=== PATIENT | female | born 1940 | race Caucasian/White ===

== ENCOUNTER 2016-07-23 17:44 | Emergency (ER) | payer MEDICARE, BC ==
[~2016-07-23 17:44] MED LIST: AMIT10 PO; AMIT25 PO; ASAB PO; ATEN25 PO; BEN25 PO; C25 PO; CALTRA600D PO; CALTRAT600 PO; CITRACAL PO; CO Q-10100 MG PO; COREG25 PO; FESO4 PO; FISH-EPA1000 MG PO; FLEX PO; GAS-X80 MG PO; HALF81 PO; HEMOCYTE324 MG PO; ICY HOT51 TOP; KAON-CL-1010 MEQ PO; KDUR10 PO; L20 PO; LEVAQUIN750 MG PO; LEVOTHYROXIN100 MCG PO; LEVOTHYROXIN150 MCG PO; LIPITOR20 PO; LOP25 PO; LORTAB10 PO; MEVACOR PO; MEVACOR40 MG PO; MSCONT15 PO; NORCO1 TAB PO; NORV25 PO; P5 PO; PCET PO; PLAQ200B PO; PREV15 PO; PRIN20 PO; SUPER B COMP PO; SYN1 PO; VITAMIN B PO; ZESTRIL20 MG PO
[2016-07-23 18:21] LABS: BASOPHILS 0.2 %; BASOPHILS ABSOLUTE 0.02 10/3/uL (0.0-0.16); EOSINOPHILS 1.1 %; EOSINOPHILS ABSOLUTE 0.14 10/3/uL (0.0-0.53); HEMATOCRIT 34.7 % (36.0-48.0); IMMATURE GRANULOCYTES 0.5 %; IMMATURE GRANULOCYTES ABSOLUTE 0.06 10/3/uL (0.0-0.11); LYMPHOCYTES 18.3 %; LYMPHOCYTES ABSOLUTE 2.33 10/3/uL (0.67-4.30); MANUAL DIFF NO %; MEAN CORPUS HGB CONC 34.6 g/dL (32.0-36.0); MEAN CORPUSCULAR HEMOGLOB 30.2 pg (26.0-34.0); MEAN CORPUSCULAR VOLUME 87.4 fL (80-100); MEAN PLATELET VOLUME 9.1 fL (9.2-13.0); MONOCYTES 9.3 %; MONOCYTES ABSOLUTE 1.19 10/3/uL (0.21-1.20); NEUTROPHILS 70.6 %; NEUTROPHILS ABSOLUTE 8.99 10/3/uL (2.02-8.40); PLATELET COUNT 284 10/3/uL (150-400); RBC DISTRIBUTION WIDTH 12.7 % (12.0-16.0); RED CELL COUNT 3.97 10/6/uL (4.0-5.6); WHITE BLOOD CELLS 12.7 10/3/uL (4.5-10.5)
[2016-07-23 18:34] LABS: A/G RATIO 1.3 (0.7-1.9); ALBUMIN 3.5 G/DL (3.5-5.0); ALKALINE PHOSPHATASE 62 U/L (45-117); BUN (BLOOD UREA NITROGEN) 16 MG/DL (6-23); CHLORIDE, SERUM 96 MMOL/L (96-112); CO2 (CARBON DIOXIDE) 32 MMOL/L (24-34); CREATININE 1.03 MG/DL (0.55-1.02); GFR AFRICAN AMERICAN 62 ML/MIN (>=60); GFR NON AFRICAN AMERICAN 53 ML/MIN (>=60); GLOBULIN 2.6 G/DL (2.5-4.1); GLUCOSE, SERUM 99 MG/DL (60-99); SGOT(AST) 29 U/L (5-40); SGPT(ALT) 30 U/L (5-65); TOTAL BILIRUBIN 0.7 MG/DL (0-1.2); TOTAL PROTEIN 6.1 G/DL (6.0-8.5)
[2016-07-23 18:36] LABS: POTASSIUM, SERUM 4.6 MMOL/L (3.5-5.3); SODIUM, SERUM 132 MMOL/L (135-148)
[2016-07-23 19:27] LABS: ASCORBIC ACID (UR NOT ORDER) NEG (NEG); BILIRUBIN, URINE NEGATIVE (NEG); ER URINALYSIS TAT 0 Hrs 11 Mins; KETONE, URINE NEGATIVE (NEG); LEUKOCYTE ESTERASE(NOT OR TRACE (NEG); NITRITE (URINE) NEG (NEG); WBC (NOT ORDERED) (RFLEX) 3 (0-5)
[2016-10-08] MEDS ORDERED: NORCO1 TAB PO ×3 (02:15→12:09)
[2016-10-08] MEDS ORDERED: ASAB PO ×2 (02:16→09:06)
[2016-10-08] MEDS ORDERED: LIPITOR10 PO (02:17)
[2016-10-08] MEDS ORDERED: PLAQ200B PO ×2 (02:18→12:09)
[2016-10-08] MEDS ORDERED: *UNABLE3 (02:23)
[2016-10-08] MEDS ORDERED: CALTRA600D PO (12:08)
[2016-10-08] MEDS ORDERED: HALF81 PO (12:08)
[2016-10-08] MEDS ORDERED: COREG3 PO (12:08)
[2016-10-08] MEDS ORDERED: CO-Q-10 PO (12:08)
[2016-10-08] MEDS ORDERED: DSS PO (12:08)
[2016-10-08] MEDS ORDERED: MSCONT15 PO (12:09)
[2016-10-08] MEDS ORDERED: SYN1 PO (12:09)
[2016-10-08] MEDS ORDERED: PROAM25 PO (12:09)
[2016-10-08] MEDS ORDERED: P5 PO (12:09)
[2016-10-08] MEDS ORDERED: ZANAFLEX 4 MG TA4 MG PO (12:10)
[2016-10-08] MEDS ORDERED: B1100 PO (12:10)
[2016-10-08] MEDS ORDERED: PREV15 PO (12:10)
[2016-10-08] MEDS ORDERED: ZOFRAN4 PO (12:11)
[2016-10-08] MEDS ORDERED: LIOR10 PO (12:12)
[2016-11-02] MEDS ORDERED: ACET500CAP PO (15:28)
[2016-11-02] MEDS ORDERED: MOVANTIK25 MG PO (15:28)
[2016-11-02] MEDS ORDERED: POTASSIUM CHLORIDE PO (15:30)
[2016-11-02] MEDS ORDERED: MIRALAX POWDER1 PKT PO (15:31)
== END 2016-07-23 22:53 | disposition home or self-care (01) ==
LOC: ER 17:44
PROVIDERS: Hospitalist
DX: K59.03 Drug induced constipation (principal); N28.1 Cyst of kidney, acquired; I25.2 Old myocardial infarction; Z95.0 Presence of cardiac pacemaker; Z88.1 Allergy status to other antibiotic agents; Z88.2 Allergy status to sulfonamides; Z79.82 Long term (current) use of aspirin; Z79.899 Other long term (current) drug therapy; Z79.52 Long term (current) use of systemic steroids; Z88.8 Allergy status to other drugs, medicaments and biological substances; T40.2X5A Adverse effect of other opioids, initial encounter
CPT/HCPCS: 74176; 80053; 81001; 83690; 85025; 93005; 99284; A9270-GY

== ENCOUNTER 2016-08-15 22:41 | Inpatient (IN) | payer MEDICARE, BC ==
--- NOTE | ~2016-08-15 | EGD ---
EGD REPORT [facility] [address] [address] NAME: SUE RIVERS : 42 STATUS : ADM IN PAT#: [id number] AGE: 76 ADM/REG DATE : 08/16/16 MR#: [id number] REPORT SERV DATE: 08/20/16 DICTATED BY: DATE: REPORT STATUS : Draft TRANSCRIBED BY: [employer] DATE: 08/20/16 [facility] Patient Name: Sue Rivers Date of : 1940 Attending MD: RICCO HAMTPON MD Procedure Date No Time: 08/20/2016 Procedure: ERCP Indications: Evaluation and possible treatment of bile duct stone(s) Referring MD: ANIKA CHEATHAM Medicines: General Anesthesia Complications: No immediate complications. Estimated blood loss: Minimal. Procedure: Pre-Anesthesia Assessment: - ASA Grade Assessment: IV - A patient with severe systemic disease that is a constant threat to life. After obtaining informed consent, the scope was passed under direct vision. Throughout the procedure, the patient's blood pressure, pulse, and oxygen saturations were monitored continuously. The TJF [id number] [id number] was introduced through the mouth, and advanced to the duodenum and used to inject contrast into the bile duct. The ERCP was accomplished without difficulty. The patient tolerated the procedure well. Findings: The composition tile layer film was normal. The esophagus was successfully intubated under direct vision. The scope was advanced to a normal major papilla in the descending duodenum without detailed examination of the pharynx, larynx and associated structures, and upper GI tract. The upper GI tract was grossly normal. After engaging the papilla, a 0.035-inch Jagwire was advanced into the common bile duct. The sphinctertome was then advanced over the wire and into the bile duct. Contrast was then injected and images were adequate for interpretation.The main bile duct was moderately dilated and diffusely dilated, with a stone causing an obstruction. The largest diameter was 18 mm. The lower third of the main bile duct contained filling defect(s) thought to be a stone. A 12 mm biliary sphincterotomy was made with a monofilament traction (standard) sphincterotome using ERBE electrocautery. There was no post-sphincterotomy bleeding. The biliary tree was swept with a 12 mm balloon starting at the bifurcation. A few stones were removed. No stones remained. The endoscope was withdrawn from the patient. Impression: - The entire main bile duct was moderately dilated, with a stone causing an obstruction. - Choledocholithiasis was found. Complete removal was EGD REPORT [address] [place]. [address] NAME: SUE RIVERS : 42 STATUS : ADM IN [facility]#: [id number] AGE: 76 ADM/REG DATE : 08/16/16 MR#: [id number] REPORT SERV DATE: 08/20/16 DICTATED BY: DATE: REPORT STATUS : Draft TRANSCRIBED BY: [employer] DATE: 08/20/16 accomplished by biliary sphincterotomy and balloon extraction. Recommendation: - [facility]. - Clear liquid diet and then advance diet as tolerated by symptoms. - Surgical consultation for consideration of cholecystectomy at appointment to be scheduled. Procedure Code(s): --- Professional --- 47384, Endoscopic retrograde cholangiopancreatography (ERCP); with removal of calculi/debris from biliary/pancreatic duct(s) 88815, Endoscopic retrograde cholangiopancreatography (ERCP); with sphincterotomy/papillotomy Diagnosis Code(s): --- Professional --- K80.51, Calculus of bile duct without cholangitis or cholecystitis with obstruction R93.2, Abnormal findings on diagnostic imaging of liver and biliary tract K80.50, Calculus of bile duct without cholangitis or cholecystitis without obstruction CPT copyright 2013 [employer]. All rights reserved. The codes documented in this report are preliminary and upon pigs feet cleaner review may be revised to meet current compliance requirements. Ricco Hampton MD RICCO HAMPTON MD 08/20/2016 9:44 AM This report has been signed electronically. Number of Addenda: 0 Note Initiated On: 08/20/2016 8:29 AM Scope Withdrawal Time 0 hours 0 minutes 0 seconds [address] [place] [address]
--- NOTE | ~2016-08-15 | CN ---
Consultation Report [facility] [address] [place]. [address] NAME: POLY RIVERS : [birth year] STATUS : ADM IN [facility]#: [id number] AGE: 76 ADM/REG DATE : 08/16/16 MR#: [id number] REPORT SERV DATE: 08/19/16 DICTATED BY: BORIS DONALDSON DATE: 08/19/16 REPORT STATUS : Draft TRANSCRIBED BY: LAURIE DATE: 08/19/16 SURGICAL CONSULTATION NOTE DATE OF CONSULTATION: 08/19/2016 REASON FOR CONSULTATION: Possible choledocholithiasis and cholelithiasis. CHIEF COMPLAINT: Lower chest pain. HISTORY: Ms. Rivers is a 76-year-old female, who had presented with dizziness, weakness, and lightheaded. She has also had some nausea and poor appetite. She says that she does have heartburn, which goes up in the chest and which is relieved by her antacids and she has a known hiatal hernia. She denies any pain radiating to her back or her right upper quadrant and currently she is completely asymptomatic. She underwent renal ultrasound, which also revealed cholelithiasis and minimal dilatation of common bile duct to 1.1 cm. Her liver function tests are normal. She has aortic valve stenosis, which is mild to moderate, which puts her at increased risk for surgical intervention. PAST MEDICAL HISTORY: Significant for coronary artery disease, aortic stenosis, pyelonephritis, sepsis in the past, pacer, immunosuppression, on Plaquenil and prednisone, lupus and rheumatoid arthritis, gastroesophageal reflux, congestive heart failure, esophageal obstruction. PREVIOUS SURGERIES: Include the pacer, the AICD placement, and knee surgery. ALLERGIES: NEOSPORIN. MEDICATIONS: Include Elavil, aspirin, atenolol, vitamin B, Lipitor, vitamin D, Coreg, coenzyme, iron, hydrocodone, Plaquenil, Prevacid, Synthroid, lisinopril, MS Contin, potassium, and prednisone. SOCIAL HISTORY: Negative for tobacco abuse or alcohol abuse. She is a . REVIEW OF SYSTEMS: Include no diarrhea. She does have some dyspnea on exertion and chest pain, which has been evaluated. PHYSICAL EXAMINATION: VITAL SIGNS: Her blood pressure is 115/54, temperature 97.8, respiratory rate 18, and pulse 72, O2 saturation 98%. GENERAL: She is alert and well appearing and not in any distress. She has no scleral icterus. She has moist mucous membranes. No visible JVD. There is no use of accessory muscles of breathing. CHEST: Clear. Consultation Report [place] [id number] [place]. [address] NAME: POLY RIVERS : [birth year] STATUS : ADM IN PAT#: [id number] AGE: 76 ADM/REG DATE : 08/16/16 MR#: [id number] REPORT SERV DATE: 08/19/16 DICTATED BY: BORIS DONALDSON DATE: 08/19/16 REPORT STATUS : Draft TRANSCRIBED BY: MODJacquelin DATE: 08/19/16 HEART: Regular rhythm and rate with a pansystolic murmur. ABDOMEN: Soft and nontender without masses, hepatosplenomegaly, and there is a negative Edwards sign. EXTREMITIES: Trace edema on the right side and a little bit more on the left. She does have arthritis. LABORATORY DATA: Additional data includes normal liver function tests. Creatinine 1.08. White blood cell count of 9.9 and hemoglobin of 9.8. IMPRESSION: Asymptomatic cholelithiasis in that her abdominal pain is most likely from her reflux along with some mild dilatation of her common duct which may be physiologic based on her age and she has normal liver function tests. The patient is also high surgical risk. Recommended that she monitor any symptoms that might be in the right upper quadrant or back which are not relieved by her antacids in which case she could be re-evaluated. Otherwise, from a surgical standpoint, she can go home. BIBI/LAURIE Mehul Donaldson M.D. / [id number] CC: MD Renato Durbin M.D.
--- NOTE | ~2016-08-15 | CN ---
Consultation Report [place] [id number] [facility] [place]. [address] NAME: SUE RIVERS : [birth year] STATUS : ADM IN [facility]#: [id number] AGE: 76 ADM/REG DATE : 08/16/16 MR#: [id number] REPORT SERV DATE: 08/16/16 DICTATED BY: DATE: REPORT STATUS : Draft TRANSCRIBED BY: MODL DATE: 08/16/16 CONSULTATION DATE OF CONSULTATION: 08/16/2016 CHIEF COMPLAINT/REASON FOR CONSULT: Elevated cardiac biomarkers and chest discomfort. PRIMARY SENIOR ADMINISTRATIVE SUPPORT: Dr. Dia. HISTORY OF PRESENT ILLNESS: Ms. Sue Rivers is a 76-year-old female, with a known history of coronary artery disease, status post PCI to the LAD, and known chronic systolic heart failure. She has been experiencing nausea for the past two to three days prior to admission, and was unable to take any p.o. intake. She felt like she was dehydrated. Then, when she was sitting in a chair yesterday, she states that she developed chest pressure of 1/10 in intensity that lasted 20 minutes, and it was associated with shortness of breath and weakness, then resolved. She has not had recurrence of her symptoms, she became concerned and presented to the hospital for additional evaluation. PAST MEDICAL HISTORY: 1. Coronary artery disease, status post anterior apical myocardial infarction in 2002 with PCI to the LAD. 2. History of ischemic cardiomyopathy, ejection fraction 35% via cardiac catheterization in 12/2015. 3. Chronic systolic heart failure. 4. Moderate aortic stenosis. 5. History of AICD placement. 6. Hypertension. 7. Lupus with immunosuppression. 8. Chronic pain syndrome. 9. Gastroesophageal reflux disease. 10.Osteoporosis. 11.Hypertension. 12.Hyperlipidemia. SOCIAL HISTORY: The patient is a . She has three children. She does not smoke, drink, or use extracurricular drugs. FAMILY HISTORY: Significant for father with a history of PE. REVIEW OF SYSTEMS: All systems were reviewed and is negative except for dictated in HPI. PHYSICAL EXAMINATION: VITAL SIGNS: Blood pressure was 92/51, it is improved to 159/71 with a fluid bolus, pulse Consultation Report [place] [id number] [facility] [place]. [address] NAME: SUE RIVERS : 42 STATUS : ADM IN [facility]#: [id number] AGE: 76 ADM/REG DATE : 08/16/16 MR#: [id number] REPORT SERV DATE: 08/16/16 DICTATED BY: DATE: REPORT STATUS : Draft TRANSCRIBED BY: MODJacquelin DATE: 08/16/16 is between 59 and 70 beats per minute, oxygen saturations 97% on room air. GENERAL: Mrs. Rivers is an elderly appearing female, she is currently in no acute distress. NECK: There is no jugular venous distention. There is a murmur that radiates to the carotids bilaterally. HEART: Regular rhythm. There is a 3/6 mid-to-late peaking systolic murmur that radiates to the carotids bilaterally. LUNGS: Clear to auscultation in all moss. ABDOMEN: Soft and nontender. EXTREMITIES: Femoral pulses +2 bilaterally. There is no femoral bruits auscultated. The lower extremities are warm and well perfused. I could not appreciate significant pitting edema. MUSCULOSKELETAL: No arthritic changes noted. No clubbing or cyanosis of the digits. NEUROLOGIC: I could not appreciate focal neurologic deficits. DATA: Sodium 132, potassium 4.4, BUN 35, creatinine 1.77, previous creatinine was 1.03 on 07/23/2016; white blood cell count 10.6, hemoglobin 11.6, hematocrit 33.6, platelet count 361, troponin 0.61 to 0.77. BNP is 554. An EKG is consistent with an AV paced rhythm. A chest x-ray performed in the emergency department demonstrated cardiomegaly. The patient's AICD is in place. There was no evidence of pulmonary edema present. IMPRESSION REPORT AND PLAN: 1. Chest pressure, now resolved. 2. Positive troponin likely secondary to demand and acute renal failure. 3. Acute renal failure likely secondary to nausea, vomiting, and dehydration. 4. History of ischemic cardiomyopathy, ejection fraction of 35%. 5. Moderate aortic stenosis. 6. Rheumatoid arthritis and lupus, immunosuppressed. 7. Chronic systolic heart failure. 8. History of coronary artery disease, status post anterior apical myocardial infarction in 2012. 9. History of AICD. 10.History of hypertension and hyperlipidemia. RECOMMENDATIONS: 1. I would recommend no invasive tests and studies at this time. Last cardiac catheterization performed on 12/2015, demonstrated patent stent to the LAD, and severely decreased left ventricular systolic function. She had approximately 50% mid left anterior descending lesion. 2. I would recommend very cautious dehydration to avoid fluid overload. 3. We would treat the patient with heparin for 48 hours in duration and then discontinue. 4. I would encourage p.o. intake. 5. I would continue her home medications with the exception of her Lasix and her lisinopril which has already been held. 6. If her renal function improves, I would recommend starting lisinopril back on Consultation Report [facility] [address] [place]. [address] NAME: SUE RIVERS : 42 STATUS : ADM IN PAT#: [id number] AGE: 76 ADM/REG DATE : 08/16/16 MR#: [id number] REPORT SERV DATE: 08/16/16 DICTATED BY: DATE: REPORT STATUS : Draft TRANSCRIBED BY: LAURIE DATE: 08/16/16 08/17/2016. It has been my pleasure to participate in her care. [facility]/LAURIE Sis Arguello M.D. / [id number] CC: MD Renato Durbin M.D. John Carter Hemphill, MD
--- NOTE | ~2016-08-15 | CN ---
Consultation Report [facility] [address] [place]. [address] NAME: SUE RIVERS : 42 STATUS : ADM IN PAT#: [id number] AGE: 76 ADM/REG DATE : 08/16/16 MR#: [id number] REPORT SERV DATE: 08/21/16 DICTATED BY: CLARISSE TAMEZ DATE: 08/19/16 REPORT STATUS : Draft TRANSCRIBED BY: MODJacquelin DATE: 08/19/16 CONSULTATION DATE OF CONSULTATION: HISTORY OF PRESENT ILLNESS: Sue Rivers is a 76-year-old female, whom we are asked to evaluate regarding an abnormal common bile duct with choledocholithiasis. I am covering for Dr. Vitale. This patient says that she experienced last week some nausea with some vomiting. She will get a mild chest pain and some shortness of breath. She has had decreased appetite for a few days with some heartburn. She had a little bit of weakness and dizziness. She denies any abdominal pain whatsoever. The patient was admitted. She was found to have elevated troponin and was initially felt to have a syc-ZG-gimvtok elevation VA. She was seen by Cardiology, who feels the elevated troponins were due to some renal failure and demand ischemia. They said that she had a heart cath in 12/2015, which showed a patent LAD stent. The patient had an ultrasound of her kidneys and was found to have a dilated common bile duct. She underwent an MRCP yesterday that showed a narrowing of the distal common bile duct with possible stone. There is gallstones as well as stone in the cystic duct. She did have intrahepatic/extrahepatic biliary dilation. Common bile duct measures at 11. She had CT angio at this admission without a PE. The patient does have a history gastroesophageal reflux disease. She had a colonoscopy at some point in the past that was normal. I cannot find that in the outpatient records. In 09/2015, Dr. Vitale did an EGD with finding of distal esophageal stricture, dilated up to 54-Portuguese, that was done after the patient had a food impaction in 08/2015. PAST MEDICAL HISTORY: 1. Coronary artery disease, status post stent. 2. Pacemaker, AICD, followed by Dr. Boyle. 3. . 4. History of pyelonephritis, 02/2016. 5. Lupus and rheumatoid arthritis, on Plaquenil and prednisone. 6. GERD. 7. Congestive heart failure. 8. History of esophageal stricture. PAST SURGICAL HISTORY: 1. Knee surgery. 2. AICD. 3. Cataract surgery. 4. Left total knee replacement. Consultation Report [place] [id number] [place]. [address] NAME: SUE RIVERS : 42 STATUS : ADM IN PAT#: [id number] AGE: 76 ADM/REG DATE : 08/16/16 MR#: [id number] REPORT SERV DATE: 08/21/16 DICTATED BY: CLARISSE TAMEZ DATE: 08/19/16 REPORT STATUS : Draft TRANSCRIBED BY: MODJacquelin DATE: 08/19/16 ALLERGIES: NEOSPORIN. SOCIAL HISTORY: She does not smoke or drink. She lives with her son. FAMILY HISTORY: No history of any colon cancer or polyps. OUTPATIENT MEDICATIONS: See list. Of note, she is on Prevacid 15 mg b.i.d., Plaquenil, hydrocodone, MS Contin, iron, and prednisone. CURRENT MEDICATIONS: See MAR. Of note, she is on Protonix 40 mg daily, Flagyl, and Levaquin which were started last evening. REVIEW OF SYSTEMS: All system reviewed and negative except for that noted in history of present illness. PHYSICAL EXAMINATION: GENERAL: She is oriented x4, in no acute distress. VITAL SIGNS: She is afebrile. Vital signs stable. LUNGS: Clear. CARDIOVASCULAR: No S3, S4. There was a murmur. ABDOMEN: Active bowel sounds. Soft, nontender. No mass, organomegaly. LABORATORY DATA: On 08/16/2016, her liver enzymes were normal. On 08/19/2016, basic metabolic profile is normal. White blood cell count 9900; hemoglobin 9.8, yesterday was 10.2, on admission was 11.6; platelet count 269. INR 1.3. IMPRESSION: 1. Abnormal common bile duct with possible common bile duct stones: Certainly, this appears to be asymptomatic with elevated liver enzymes. I do not know how this relates to her presenting symptoms, which were somewhat vague. 2. Gastroesophageal reflux disease. 3. History of esophageal stricture. 4. Nausea and vomiting, on admission, with mild shortness of breath and chest pain. The patient was seen by Dr. Gross, who feels that the cholelithiasis is asymptomatic and could just be followed p.r.n. Although, Surgery does not feel the need for cholecystectomy now, we do need to address common bile duct. I have had a long discussion with the patient with the nurse present. I suggested the patient may be best to have an EUS and ERCP here now as an outpatient. I cannot totally exclude the fact that her symptoms on admission could not have been due to possible common bile duct stones. The patient will discuss this with her son and make a decision whether to proceed with EUS/ERCP tomorrow or follow up with Dr. Vitale as an outpatient. Consultation Report [place] [id number] [facility] [place]. [address] NAME: SUE RIVERS : 42 STATUS : [facility] [id number] AGE: 76 ADM/REG DATE : 08/16/16 MR#: [id number] REPORT SERV DATE: 08/21/16 DICTATED BY: CLARISSE TAMEZ DATE: 08/19/16 REPORT STATUS : Draft TRANSCRIBED BY: LAURIE DATE: 08/19/16 RECOMMENDATION: EUS/ERCP tomorrow as an outpatient. Thirty five minutes were spent in evaluation of this patient. Thanks for allowing us to assist in her care. ELTON/LAURIE Clarisse Tamez M.D. / [id number] CC: MD Renato Durbin M.D. Colleen Schmitt, M.D.
--- NOTE | ~2016-08-15 | HP ---
History And Physical [place] [id number] [place]. [address] NAME: POLY DEJESUS : 42 STATUS : ADM IN [facility]#: [id number] AGE: 76 ADM/REG DATE : 08/16/16 MR#: [id number] REPORT SERV DATE: 08/16/16 DICTATED BY: MYRANDA DUTTA DATE: 08/16/16 REPORT STATUS : Draft TRANSCRIBED BY: LAURIE DATE: 08/16/16 DATE OF ADMISSION: 08/16/2016 CHIEF COMPLAINT: A 76-year-old female presenting with weakness and dizziness. HISTORY OF PRESENT ILLNESS: The patient's history was obtained through an interview with the patient and son coupled with review of [facility] and [facility] medical records. Just on the morning of 08/15/2016 the patient has had an onset of dizziness, weakness, and lightheadedness. She admits that she has had a poor appetite for 2 to 3 days with what she describes as heartburn in the middle of her chest. She has had nausea, but no vomiting. Today, she felt so weak that she almost fell a few times. She felt a new onset left chest discomfort really towards the back of her chest, a soreness quality, 4/10 severity, exacerbated by breathing, and making it difficult to breathe with what she describes as dyspnea on exertion. No abdominal pain. No diarrhea. She has chronic stable knee arthritis. REVIEW OF SYSTEMS: Otherwise, a 14-point review of systems was obtained and was negative. PAST MEDICAL HISTORY: 1. Coronary artery disease, status post stent placement, seen by Dr. Dia. 2. Pacer/AICD placement under the care Dr. Boyle. 3. Aortic stenosis. 4. Escherichia coli pyelonephritis with sepsis in 02/2016. 5. Immunosuppression, on Plaquenil and prednisone. 6. Lupus and rheumatoid arthritis. 7. Gastroesophageal reflux disorder. 8. Systolic congestive heart failure. Ejection fraction 35% with pulmonary hypertension. 9. Esophageal stricture, status post dilatation, seen by Dr. Geovanna Vitale. PAST SURGICAL HISTORY: 1. Pacer/AICD placement. 2. Knee surgery. ALLERGIES: NEOSPORIN. SOCIAL HISTORY: No tobacco abuse. No alcohol abuse. She has been a for 8 years. Lives with her son now in [place], [place]. FAMILY HISTORY: Cancer. CURRENT MEDICATIONS: Include Elavil 25 mg p.o. daily, aspirin 81 mg p.o. daily, atenolol 25 mg p.o. daily, Lipitor 20 mg p.o. daily, vitamin B complex, calcium, vitamin D, Coreg 25 mg History And Physical [place] [id number] [place]. [address] NAME: POLY DEJESUS : 42 STATUS : ADM IN PAT#: [id number] AGE: 76 ADM/REG DATE : 08/16/16 MR#: [id number] REPORT SERV DATE: 08/16/16 DICTATED BY: MYRANDA DUTTA DATE: 08/16/16 REPORT STATUS : Draft TRANSCRIBED BY: LAURIE DATE: 08/16/16 p.o. b.i.d., coenzyme Q10, iron supplement, Lasix 20 mg p.o. daily, hydrocodone t.i.d. as needed, Plaquenil 200 mg p.o. b.i.d., Prevacid 15 mg p.o. b.i.d., Synthroid 100 mcg p.o. daily, lisinopril 20 mg p.o. daily, MS Contin 15 mg p.o. b.i.d. potassium 10 mEq p.o. daily, prednisone 5 mg p.o. daily. PHYSICAL EXAMINATION: VITAL SIGNS: Temperature 97.4, pulse 59, blood pressure initially 92/51, but improved to about 120/80 consistently in the emergency department, respiratory rate 22, O2 saturation 93% on room air. GENERAL: A pleasant, cooperative, female, not in any particular distress at this time. HEENT: Pupils equal, round, and reactive to light. No conjunctival pallor. No scleral icterus. Nares are patent. Oropharynx is clear of obstruction. The patient has dry mucous membranes. NECK: Trachea midline. No thyromegaly. LYMPH: No cervical lymphadenopathy. No supraclavicular lymphadenopathy. RESPIRATORY: Clear to auscultation at bases. No wheezes. No rales. No rhonchi. Normal respiratory effort. CARDIOVASCULAR: Regular rate and rhythm. Paced on the monitor. A very harsh 4/6 systolic murmur. No rubs or gallops. No extremity edema is appreciated. ABDOMEN: Soft, nontender, nondistended. Normal bowel sounds auscultated throughout. No hepatosplenomegaly. DERMATOLOGICAL: Warm and dry extremities. No pallor. No cyanosis. PSYCHIATRIC: Normal affect, good mood. Alert and oriented x3. LABORATORY DATA: Troponin 0.61. Brain natriuretic peptide 554. INR 1.2. White blood cell count 10.6, hemoglobin 12, hematocrit 34, platelets 361. Sodium 132, potassium 4.4, chloride 94, bicarb 31, BUN 35, creatinine 1.77 from a baseline of 1.0, glucose 87. STUDIES: 1. Chest x-ray by my own evaluation shows no acute cardiopulmonary process. 2. EKG by my own evaluation shows atrial ventricular pacing. 3. CT angiogram of the chest shows no pulmonary embolism, no infiltrate. ASSESSMENT AND PLAN: 1. Uzj-XI-kjywqhjhe myocardial infarction, place on heparin drip IV, cardiology consult. 2. Murmur, check an echocardiogram. 3. Acute kidney injury, clinically appears dehydrated. We will try IV fluids and monitor. 4. Elevated brain natriuretic peptide, yet no clear signs of volume overload. No lower extremity edema. No rales on exam. Negative chest x-ray. 5. Lupus, rheumatoid arthritis. Check ESR. Check CRP. Check complement level C3 plus C4. Question activity? 6. Pacemaker, we will interrogate. [facility] History And Physical [address] [address] NAME: POLY DEJESUS : 42 STATUS : ADM IN [facility]#: [id number] AGE: 76 ADM/REG DATE : 08/16/16 MR#: [id number] REPORT SERV DATE: 08/16/16 DICTATED BY: MYRANDA DUTTA DATE: 08/16/16 REPORT STATUS : Draft TRANSCRIBED BY: MODL DATE: 08/16/16 Myranda Dutta M.D. / [id number] CC: MD Renato Durbin M.D. John Carter Hemphill, MD
--- NOTE | ~2016-08-15 | DS ---
Discharge Summary [facility] [address] [place]. [address] NAME: POLY DEJESUS : 42 STATUS : ADM IN [facility]#: [id number] AGE: 76 ADM/REG DATE : 08/16/16 MR#: [id number] REPORT SERV DATE: 08/20/16 DICTATED BY: JOSH TINOCO DATE: 08/19/16 REPORT STATUS : Draft TRANSCRIBED BY: LAURIE DATE: 08/19/16 ADMISSION DATE: 08/16/2016 DISCHARGE DATE: CONSULTATION: 1. Cardiology, Dr. David Dia. 2. General Surgery, Dr. Gross. DISCHARGE DIAGNOSES: 1. Acute kidney injury. 2. Intractable nausea and vomiting. 3. Elevated troponin due to demand ischemia. 4. Asymptomatic cholelithiasis. 5. Asymptomatic choledocholithiasis. 6. Bilateral multiple renal cysts. 7. Hypertension. 8. Hypothyroidism. 9. Systemic lupus erythematosus without acute flare during this admission. 10.History of chronic immunosuppression, on Plaquenil and prednisone. 11.Gastroesophageal reflux disease. 12.Ischemic cardiomyopathy with ejection fraction of 35%. 13.Mild to moderate aortic stenosis. 14.Mild mitral and tricuspid regurgitation. 15.History of mild pulmonary hypertension. 16.History of coronary artery disease with remote history of PCI to left anterior descending artery. OPERATIONS/INVASIVE PROCEDURE: None. HISTORY OF PRESENT ILLNESS: For detailed HPI, make reference to Dr. Mamadou Norris's dictation on 08/16/2016. In brief, this is a 76-year-old female who presented to the hospital with generalized weakness, dizziness who presented to the hospital with complaints of dizziness, weakness, lightheadedness, poor appetite of three days duration and persistent nausea and vomiting. Denies any chest pain or episodes of shortness of breath on exertion. In the ER, temperature was 97.4, pulse was 59, blood pressure was 92/51. Physical exam revealed a grade 4/6 systolic murmur. No rubs. No gallops. LABORATORY DATA: Troponin 0.61. BNP of 554, INR of 1.2. White cell count of 10, creatinine 1.77. Last known baseline (1.0). Chest x-ray shows no acute cardiopulmonary process. EKG shows atrial ventricular pacing without acute ST-segment elevation. CT angiogram of the chest shows no pulmonary emboli or infiltrates. An assessment of acute kidney injury secondary to hypovolemia and elevated troponin concerning for possible non-NSTEMI was made in the ER. The patient was admitted to the Hospitalist Service. HOSPITAL COURSE: 1. Elevated troponin due to demand ischemia. The patient was empirically started on Discharge Summary [place] [address] [place]. [address] NAME: POLY DEJESUS : 42 STATUS : ADM IN PAT#: [id number] AGE: 76 ADM/REG DATE : 08/16/16 MR#: [id number] REPORT SERV DATE: 08/20/16 DICTATED BY: JOSH TINOCO DATE: 08/19/16 REPORT STATUS : Draft TRANSCRIBED BY: LAURIE DATE: 08/19/16 heparin therapy. Cardiology was consulted. Cardiology recommended 48 hours therapy with IV heparin which was subsequently discontinued per Cardiology, likely etiology of elevated troponin, is more of demand ischemia from hypovolemia and acute kidney injury as opposed to an acute coronary syndrome. At the time of discharge, the patient had no further episodes of shortness of breath. No chest pain. The patient was advised to follow up with Cardiology as an outpatient. 2. Acute kidney injury. The patient was started on gentle IV fluid resuscitation. The patient's blood pressure improved and remained stable. The patient's creatinine trended down from 1.72, back to baseline of 1.0 prior to discharge. On initial CTA of the chest that was done on presentation, an incidental finding of possible renal mass was noted. A dedicated MRI of the abdomen and a renal ultrasound confirmed the presence of benign multiple renal cyst. No evidence of renal malignancy noted on abdominal imaging. The patient was advised to continue primary care physician followup. 3. Asymptomatic cholelithiasis and choledocholithiasis. The patient was noted to have an incidental finding of biliary duct dilatation with concern for possible distal obstruction in the common bile duct. An MRCP was obtained that shows presence of stone with partial occlusion of the common bile duct. However, the patient remained asymptomatic throughout the course of this admission. General Surgery evaluation was obtained. Recommended outpatient followup. 4. Systemic lupus erythematosus. The patient's ESR was normal. CRP normal. No evidence of acute flare during this admission. The patient's home dose of Plaquenil and prednisone was continued throughout the course of this admission. The patient was advised to continue follow up with systems mgr as an outpatient. DISCHARGE MEDICATIONS: 1. Amitriptyline 25 mg p.o. daily. 2. Aspirin 81 mg p.o. daily. 3. Tylenol 25 mg p.o. daily. 4. Lipitor 20 mg p.o. at bedtime. 5. Coreg 25 mg p.o. b.i.d. 6. Calcium plus vitamin D 600 mg p.o. b.i.d. 7. Coenzyme every 100 mg capsule p.o. daily. 8. Iron 324 mg p.o. daily. 9. Plaquenil 200 mg p.o. b.i.d. 10.Levothyroxine 100 mcg p.o. daily. 11.Lisinopril 20 mg p.o. daily. 12.MS Contin 50 mg p.o. b.i.d. 13.Prednisone 5 mg p.o. daily. 14.Vitamin B complex 1 p.o. daily. 15.Lasix 20 mg p.o. daily. 16.Prevacid 15 mg p.o. daily. DISCHARGE ACTIVITY: As tolerated. DISCHARGE DIET: Low-salt diet. Discharge Summary [address] [address] NAME: POLY DEJESUS : 42 STATUS : ADM IN [facility]#: [id number] AGE: 76 ADM/REG DATE : 08/16/16 MR#: [id number] REPORT SERV DATE: 08/20/16 DICTATED BY: JOSH TINOCO DATE: 08/19/16 REPORT STATUS : Draft TRANSCRIBED BY: LAURIE DATE: 08/19/16 FOLLOWUP: 1. Follow up with primary care physician within one to two weeks of discharge. 2. Continue follow up with Cardiology within two to three weeks of discharge. 3. Continue follow up with general surgeon as scheduled. Greater than 35 minutes was used to prepare this patient's discharge, reconcile medication, and advised the patient on discharge plans and followup. DICTATED BY: MD MARILY Durbin/LAURIE Josh Tinoco MD / [id number] CC: MD Renato Durbin M.D. John Carter Hemphill, MD Kevin P Luce, M.D. J. Daniel Stanley, M.D.
--- NOTE | ~2016-08-15 | DS ---
Discharge Summary [place] [address] [place]. [address] NAME: POLY DEJESUS : 42 STATUS : ADM IN [facility]#: [id number] AGE: 76 ADM/REG DATE : 08/16/16 MR#: [id number] REPORT SERV DATE: 08/21/16 DICTATED BY: FOREST ESTRADA II DATE: 08/21/16 REPORT STATUS : Draft TRANSCRIBED BY: LAURIE DATE: 08/21/16 ADMISSION DATE: 08/16/2016 DISCHARGE DATE: 08/21/2016 ADDENDUM: The patient elected to go ahead and do an ERCP while inpatient and was subsequently taken by Dr. Garrett and found to have moderate dilatation of the entire main bile duct with a stone causing an obstruction. Complete removal was accomplished by biliary sphincterotomy and balloon extraction. Dr. Garrett recommended follow up with Surgery as planned as an outpatient for consideration for possible cholecystectomy. The patient tolerated the procedure well, had no evidence of post ERCP pancreatitis, and she is tolerating her diet well and feels much better. Otherwise, please see Dr. Thomas's discharge summary from yesterday for hospital course and discharge medications. DICTATED BY: MD BILLIE Mitchell II/LAURIE Forest Estrada II, MD / [id number] CC: MD Renato Mitchell II, M.D.
[2016-08-15 23:22] LABS: BASOPHILS 0.2 %; BASOPHILS ABSOLUTE 0.02 10/3/uL (0.0-0.16); EOSINOPHILS 0.4 %; EOSINOPHILS ABSOLUTE 0.04 10/3/uL (0.0-0.53); HEMATOCRIT 33.6 % (36.0-48.0); HEMOGLOBIN 11.6 g/dL (12.0-16.0); IMMATURE GRANULOCYTES 0.6 %; IMMATURE GRANULOCYTES ABSOLUTE 0.06 10/3/uL (0.0-0.11); LYMPHOCYTES 24.2 %; LYMPHOCYTES ABSOLUTE 2.58 10/3/uL (0.67-4.30); MEAN CORPUS HGB CONC 34.5 g/dL (32.0-36.0); MEAN CORPUSCULAR HEMOGLOB 30.6 pg (26.0-34.0); MEAN CORPUSCULAR VOLUME 88.7 fL (80-100); MEAN PLATELET VOLUME 8.3 fL (9.2-13.0); MONOCYTES 9.6 %; MONOCYTES ABSOLUTE 1.02 10/3/uL (0.21-1.20); NEUTROPHILS ABSOLUTE 6.92 10/3/uL (2.02-8.40); PLATELET COUNT 361 10/3/uL (150-400); RED CELL COUNT 3.79 10/6/uL (4.0-5.6); WHITE BLOOD CELLS 10.6 10/3/uL (4.5-10.5)
[2016-08-15 23:25] LABS: MANUAL DIFF NO %
[2016-08-15 23:29] LABS: INTERNATIONAL NORMAL RATI 1.2 UNITS (-); PARTIAL THROMBO TIME 26.3 SEC (22.5-37.2)
[2016-08-15 23:40] LABS: CALCIUM, SERUM 8.6 MG/DL (8.5-10.4); CHLORIDE, SERUM 94 MMOL/L (96-112); CO2 (CARBON DIOXIDE) 31 MMOL/L (24-34); GLUCOSE, SERUM 87 MG/DL (60-99); POTASSIUM, SERUM 4.4 MMOL/L (3.5-5.3); SODIUM, SERUM 132 MMOL/L (135-148)
[2016-08-15 23:41] LABS: BUN (BLOOD UREA NITROGEN) 35 MG/DL (6-23); CREATININE 1.77 MG/DL (0.55-1.02); GFR AFRICAN AMERICAN 32 ML/MIN (>=60); GFR NON AFRICAN AMERICAN 28 ML/MIN (>=60)
[2016-08-15 23:49] LABS: CHEST PAIN PROFILE TAT 0 Hrs 31 Mins; TROPONIN I 0.61 NG/ML (<0.05)
[2016-08-16 01:25] LABS: ALKALINE PHOSPHATASE 67 U/L (45-117); DIRECT BILIRUBIN 0.2 MG/DL (0.0-0.4); INDIRECT BILIRUBIN(NOT ORDER) 0.3 MG/DL (0.1-0.9); SGOT(AST) 32 U/L (5-40); SGPT(ALT) 26 U/L (5-65); TOTAL BILIRUBIN 0.5 MG/DL (0-1.2)
[2016-08-16] MEDS ORDERED: ATEN25 PO (02:35)
[2016-08-16] MEDS ORDERED: AMIT25 PO (02:35)
[2016-08-16] MEDS ORDERED: CITRACAL PO (02:36)
[2016-08-16] MEDS ORDERED: L40 PO (02:37)
[2016-08-16] MEDS ORDERED: COREG25 PO (02:37)
[2016-08-16] MEDS ORDERED: HEMOCYTE324 MG PO (02:37)
[2016-08-16] MEDS ORDERED: CO Q-10100 MG PO (02:37)
[2016-08-16] MEDS ORDERED: PREV15 PO (02:38)
[2016-08-16] MEDS ORDERED: MSCONT15 PO (02:39)
[2016-08-16] MEDS ORDERED: PRIN20 PO (02:39)
[2016-08-16] MEDS ORDERED: LEVOTHYROXIN150 MCG PO (02:39)
[2016-08-16] MEDS ORDERED: KDUR10 PO (02:39)
[2016-08-16 07:32] LABS: C-REACTIVE PROTEIN 24.5 MG/L (<8.0); COMPLEMENT C3 96 MG/DL (75-161); TROPONIN I 0.77 NG/ML (<0.05)
[2016-08-16 09:32] LABS: CALCIUM, SERUM 8.6 MG/DL (8.5-10.4); CHLORIDE, SERUM 100 MMOL/L (96-112); CO2 (CARBON DIOXIDE) 22 MMOL/L (24-34); CREATININE 1.51 MG/DL (0.55-1.02); GFR AFRICAN AMERICAN 39 ML/MIN (>=60); GFR NON AFRICAN AMERICAN 33 ML/MIN (>=60); GLUCOSE, SERUM 79 MG/DL (60-99); POTASSIUM, SERUM 4.3 MMOL/L (3.5-5.3); SODIUM, SERUM 135 MMOL/L (135-148)
[2016-08-16 09:33] LABS: BUN (BLOOD UREA NITROGEN) 31 MG/DL (6-23)
[2016-08-16 11:43] LABS: ASCORBIC ACID (UR NOT ORDER) NEG (NEG); BILIRUBIN, URINE NEGATIVE (NEG); KETONE, URINE NEGATIVE (NEG); LEUKOCYTE ESTERASE(NOT OR NEG (NEG); WBC (NOT ORDERED) (RFLEX) 2 (0-5)
[2016-08-16 14:00] LABS: BASOPHILS 0.3 %; BASOPHILS ABSOLUTE 0.03 10/3/uL (0.0-0.16); EOSINOPHILS 1.1 %; HEMATOCRIT 30.6 % (36.0-48.0); HEMOGLOBIN 10.6 g/dL (12.0-16.0); IMMATURE GRANULOCYTES 0.3 %; IMMATURE GRANULOCYTES ABSOLUTE 0.03 10/3/uL (0.0-0.11); LYMPHOCYTES ABSOLUTE 2.15 10/3/uL (0.67-4.30); MEAN CORPUS HGB CONC 34.6 g/dL (32.0-36.0); MEAN CORPUSCULAR HEMOGLOB 30.5 pg (26.0-34.0); MEAN CORPUSCULAR VOLUME 87.9 fL (80-100); MEAN PLATELET VOLUME 8.4 fL (9.2-13.0); MONOCYTES 7.7 %; MONOCYTES ABSOLUTE 0.69 10/3/uL (0.21-1.20); NEUTROPHILS 66.6 %; NEUTROPHILS ABSOLUTE 5.96 10/3/uL (2.02-8.40); PLATELET COUNT 291 10/3/uL (150-400); RBC DISTRIBUTION WIDTH 13.2 % (12.0-16.0); RED CELL COUNT 3.48 10/6/uL (4.0-5.6)
[2016-08-16 14:01] LABS: MANUAL DIFF NO %
[2016-08-16 14:07] LABS: INTERNATIONAL NORMAL RATI 1.3 UNITS (-); PROTIME (NOT ORD) 16.5 SEC (12.0-14.5)
[2016-08-16 14:08] LABS: PARTIAL THROMBO TIME 73.3 SEC (22.5-37.2)
[2016-08-16 14:23] LABS: A/G RATIO 0.9 (0.7-1.9); ALBUMIN 2.4 G/DL (3.5-5.0); ALKALINE PHOSPHATASE 57 U/L (45-117); CALCIUM, SERUM 8.2 MG/DL (8.5-10.4); CHLORIDE, SERUM 100 MMOL/L (96-112); CREATININE 1.25 MG/DL (0.55-1.02); GFR AFRICAN AMERICAN 49 ML/MIN (>=60); GFR NON AFRICAN AMERICAN 42 ML/MIN (>=60); GLOBULIN 2.6 G/DL (2.5-4.1); POTASSIUM, SERUM 3.9 MMOL/L (3.5-5.3); SGOT(AST) 29 U/L (5-40); SGPT(ALT) 23 U/L (5-65); SODIUM, SERUM 136 MMOL/L (135-148)
[2016-08-16 14:24] LABS: BUN (BLOOD UREA NITROGEN) 26 MG/DL (6-23); CO2 (CARBON DIOXIDE) 28 MMOL/L (24-34); GLUCOSE, SERUM 107 MG/DL (60-99); TOTAL BILIRUBIN 1.4 MG/DL (0-1.2); TROPONIN I 0.74 NG/ML (<0.05); ULTRASENSITIVE TSH 0.477 MCIU/ML (0.358-3.740)
[2016-08-17 02:19] LABS: BASOPHILS 0.2 %; BASOPHILS ABSOLUTE 0.02 10/3/uL (0.0-0.16); EOSINOPHILS 0.4 %; EOSINOPHILS ABSOLUTE 0.04 10/3/uL (0.0-0.53); HEMATOCRIT 29.3 % (36.0-48.0); HEMOGLOBIN 10.2 g/dL (12.0-16.0); IMMATURE GRANULOCYTES 0.3 %; IMMATURE GRANULOCYTES ABSOLUTE 0.03 10/3/uL (0.0-0.11); LYMPHOCYTES 26.4 %; MEAN CORPUS HGB CONC 34.8 g/dL (32.0-36.0); MEAN CORPUSCULAR HEMOGLOB 30.8 pg (26.0-34.0); MEAN CORPUSCULAR VOLUME 88.5 fL (80-100); MEAN PLATELET VOLUME 8.6 fL (9.2-13.0); MONOCYTES 6.5 %; MONOCYTES ABSOLUTE 0.66 10/3/uL (0.21-1.20); NEUTROPHILS 66.2 %; NEUTROPHILS ABSOLUTE 6.76 10/3/uL (2.02-8.40); PLATELET COUNT 287 10/3/uL (150-400); RBC DISTRIBUTION WIDTH 13.3 % (12.0-16.0); RED CELL COUNT 3.31 10/6/uL (4.0-5.6); WHITE BLOOD CELLS 10.2 10/3/uL (4.5-10.5)
[2016-08-17 02:38] LABS: MANUAL DIFF NO %
[2016-08-17 02:53] LABS: CALCIUM, SERUM 8.3 MG/DL (8.5-10.4); CHLORIDE, SERUM 100 MMOL/L (96-112); CO2 (CARBON DIOXIDE) 28 MMOL/L (24-34); CREATININE 1.01 MG/DL (0.55-1.02); GFR AFRICAN AMERICAN 63 ML/MIN (>=60); GFR NON AFRICAN AMERICAN 54 ML/MIN (>=60); PHOSPHORUS, SERUM 2.3 MG/DL (2.5-4.5); POTASSIUM, SERUM 4.1 MMOL/L (3.5-5.3); SODIUM, SERUM 137 MMOL/L (135-148)
[2016-08-17 02:57] LABS: BUN (BLOOD UREA NITROGEN) 20 MG/DL (6-23); GLUCOSE, SERUM 80 MG/DL (60-99)
[2016-08-19 04:34] LABS: BASOPHILS 0.2 %; BASOPHILS ABSOLUTE 0.02 10/3/uL (0.0-0.16); EOSINOPHILS 0.3 %; EOSINOPHILS ABSOLUTE 0.03 10/3/uL (0.0-0.53); HEMATOCRIT 28.4 % (36.0-48.0); HEMOGLOBIN 9.8 g/dL (12.0-16.0); IMMATURE GRANULOCYTES 0.4 %; IMMATURE GRANULOCYTES ABSOLUTE 0.04 10/3/uL (0.0-0.11); LYMPHOCYTES 26.9 %; LYMPHOCYTES ABSOLUTE 2.65 10/3/uL (0.67-4.30); MANUAL DIFF NO %; MEAN CORPUS HGB CONC 34.5 g/dL (32.0-36.0); MEAN CORPUSCULAR HEMOGLOB 30.2 pg (26.0-34.0); MEAN CORPUSCULAR VOLUME 87.4 fL (80-100); MEAN PLATELET VOLUME 8.6 fL (9.2-13.0); MONOCYTES 9.9 %; MONOCYTES ABSOLUTE 0.98 10/3/uL (0.21-1.20); NEUTROPHILS 62.3 %; NEUTROPHILS ABSOLUTE 6.14 10/3/uL (2.02-8.40); PLATELET COUNT 269 10/3/uL (150-400); RBC DISTRIBUTION WIDTH 13.4 % (12.0-16.0); RED CELL COUNT 3.25 10/6/uL (4.0-5.6); WHITE BLOOD CELLS 9.9 10/3/uL (4.5-10.5)
[2016-08-19 04:48] LABS: BUN (BLOOD UREA NITROGEN) 17 MG/DL (6-23); CALCIUM, SERUM 8.6 MG/DL (8.5-10.4); CHLORIDE, SERUM 98 MMOL/L (96-112); CO2 (CARBON DIOXIDE) 31 MMOL/L (24-34); CREATININE 1.08 MG/DL (0.55-1.02); GFR AFRICAN AMERICAN 58 ML/MIN (>=60); GFR NON AFRICAN AMERICAN 50 ML/MIN (>=60); GLUCOSE, SERUM 70 MG/DL (60-99); PHOSPHORUS, SERUM 2.3 MG/DL (2.5-4.5); POTASSIUM, SERUM 4.1 MMOL/L (3.5-5.3); SODIUM, SERUM 136 MMOL/L (135-148)
[2016-08-19 17:32] LABS: ALBUMIN 2.3 G/DL (3.5-5.0); DIRECT BILIRUBIN 0.1 MG/DL (0.0-0.4); SGOT(AST) 48 U/L (5-40); SGPT(ALT) 36 U/L (5-65); TOTAL PROTEIN 4.9 G/DL (6.0-8.5)
[2016-08-19 17:33] LABS: ALKALINE PHOSPHATASE 98 U/L (45-117); INDIRECT BILIRUBIN(NOT ORDER) 0.2 MG/DL (0.1-0.9); TOTAL BILIRUBIN 0.3 MG/DL (0-1.2)
[2016-08-20 06:46] LABS: BASOPHILS 0.2 %; BASOPHILS ABSOLUTE 0.03 10/3/uL (0.0-0.16); EOSINOPHILS 0.2 %; EOSINOPHILS ABSOLUTE 0.03 10/3/uL (0.0-0.53); HEMOGLOBIN 10.8 g/dL (12.0-16.0); IMMATURE GRANULOCYTES 0.5 %; IMMATURE GRANULOCYTES ABSOLUTE 0.06 10/3/uL (0.0-0.11); LYMPHOCYTES 25.1 %; MEAN CORPUS HGB CONC 34.4 g/dL (32.0-36.0); MEAN CORPUSCULAR HEMOGLOB 30.9 pg (26.0-34.0); MEAN PLATELET VOLUME 9.1 fL (9.2-13.0); MONOCYTES ABSOLUTE 1.27 10/3/uL (0.21-1.20); NEUTROPHILS ABSOLUTE 8.14 10/3/uL (2.02-8.40); PLATELET COUNT 286 10/3/uL (150-400); RBC DISTRIBUTION WIDTH 13.5 % (12.0-16.0); RED CELL COUNT 3.49 10/6/uL (4.0-5.6); WHITE BLOOD CELLS 12.7 10/3/uL (4.5-10.5)
[2016-08-20 06:48] LABS: INTERNATIONAL NORMAL RATI 1.3 UNITS (-); PROTIME (NOT ORD) 15.7 SEC (12.0-14.5)
[2016-08-20 06:51] LABS: ALBUMIN 2.4 G/DL (3.5-5.0); ALKALINE PHOSPHATASE 91 U/L (45-117); BUN (BLOOD UREA NITROGEN) 15 MG/DL (6-23); CALCIUM, SERUM 8.7 MG/DL (8.5-10.4); CHLORIDE, SERUM 98 MMOL/L (96-112); CO2 (CARBON DIOXIDE) 29 MMOL/L (24-34); CREATININE 1.04 MG/DL (0.55-1.02); DIRECT BILIRUBIN 0.1 MG/DL (0.0-0.4); GFR AFRICAN AMERICAN 61 ML/MIN (>=60); GFR NON AFRICAN AMERICAN 53 ML/MIN (>=60); GLUCOSE, SERUM 75 MG/DL (60-99); HEMATOCRIT 31.4 % (36.0-48.0); INDIRECT BILIRUBIN(NOT ORDER) 0.4 MG/DL (0.1-0.9); MANUAL DIFF NO %; POTASSIUM, SERUM 3.8 MMOL/L (3.5-5.3); SGOT(AST) 34 U/L (5-40); SGPT(ALT) 32 U/L (5-65); SODIUM, SERUM 138 MMOL/L (135-148); TOTAL BILIRUBIN 0.5 MG/DL (0-1.2)
[2016-10-08] MEDS ORDERED: NORCO1 TAB PO ×3 (02:15→12:09)
[2016-10-08] MEDS ORDERED: ASAB PO ×2 (02:16→09:06)
[2016-10-08] MEDS ORDERED: LIPITOR10 PO (02:17)
[2016-10-08] MEDS ORDERED: PLAQ200B PO ×2 (02:18→12:09)
[2016-10-08] MEDS ORDERED: *UNABLE3 (02:23)
[2016-10-08] MEDS ORDERED: DSS PO (12:08)
[2016-10-08] MEDS ORDERED: HALF81 PO (12:08)
[2016-10-08] MEDS ORDERED: CO-Q-10 PO (12:08)
[2016-10-08] MEDS ORDERED: COREG3 PO (12:08)
[2016-10-08] MEDS ORDERED: CALTRA600D PO (12:08)
[2016-10-08] MEDS ORDERED: PROAM25 PO (12:09)
[2016-10-08] MEDS ORDERED: SYN1 PO (12:09)
[2016-10-08] MEDS ORDERED: MSCONT15 PO (12:09)
[2016-10-08] MEDS ORDERED: P5 PO (12:09)
[2016-10-08] MEDS ORDERED: ZANAFLEX 4 MG TA4 MG PO (12:10)
[2016-10-08] MEDS ORDERED: PREV15 PO (12:10)
[2016-10-08] MEDS ORDERED: B1100 PO (12:10)
[2016-10-08] MEDS ORDERED: ZOFRAN4 PO (12:11)
[2016-10-08] MEDS ORDERED: LIOR10 PO (12:12)
[2016-11-02] MEDS ORDERED: ACET500CAP PO (15:28)
[2016-11-02] MEDS ORDERED: MOVANTIK25 MG PO (15:28)
[2016-11-02] MEDS ORDERED: POTASSIUM CHLORIDE PO (15:30)
[2016-11-02] MEDS ORDERED: MIRALAX POWDER1 PKT PO (15:31)
== END 2016-08-21 15:44 | disposition home health service (06) | DRG 683 ==
LOC: ER 22:41 → 7NO 08-16 04:37
PROVIDERS: Hospitalist; Internal Medicine; Internal Medicine Gastroenterology
PROC: 0F798ZZ Dilation of Common Bile Duct, Via Natural or Artificial Opening Endoscopic (ICD-10-PCS; principal; 2016-08-20 09:07)
PROC: 0FC98ZZ Extirpation of Matter from Common Bile Duct, Via Natural or Artificial Opening Endoscopic (ICD-10-PCS; 2016-08-20 09:07)
DX: N17.9 Acute kidney failure, unspecified (principal); I50.22 Chronic systolic (congestive) heart failure; I24.8 Other forms of acute ischemic heart disease; K80.10 Calculus of gallbladder with chronic cholecystitis without obstruction; K80.51 Calculus of bile duct without cholangitis or cholecystitis with obstruction; M32.9 Systemic lupus erythematosus, unspecified; I08.3 Combined rheumatic disorders of mitral, aortic and tricuspid valves; E86.0 Dehydration; Z95.0 Presence of cardiac pacemaker; M06.9 Rheumatoid arthritis, unspecified; G89.4 Chronic pain syndrome; I25.10 Atherosclerotic heart disease of native coronary artery without angina pectoris; Z95.5 Presence of coronary angioplasty implant and graft; K21.9 Gastro-esophageal reflux disease without esophagitis; M81.0 Age-related osteoporosis without current pathological fracture; I10 Essential (primary) hypertension; E03.9 Hypothyroidism, unspecified; N28.1 Cyst of kidney, acquired
CPT/HCPCS: 71010; 71020; 71275; 74181; 74330; 76775; 80048; 80053; 80076; 81001; 83690; 83735; 83880; 84100; 84443; 84484; 85025; 85379; 85610; 85652; 85730; 86140; 86160; 93005; 96374; 99291; A9270-GY; C1769; C8929; J0330; J1956; J2370; J2405; J2710; Q9957; Q9967

== ENCOUNTER 2016-08-31 12:49 | Inpatient (IN) | payer MEDICARE, BC ==
--- NOTE | ~2016-08-31 | OP ---
Record Of Operation [facility] [address] [place]. [address] NAME: POLY DEJESUS : 42 STATUS : ADM IN [facility]#: [id number] AGE: 76 ADM/REG DATE : 08/31/16 MR#: [id number] REPORT SERV DATE: 09/01/16 DICTATED BY: HAIM LEO III DATE: 09/01/16 REPORT STATUS : Draft TRANSCRIBED BY: MODJacquelin DATE: 09/01/16 DATE OF PROCEDURE: 09/01/2016 PREOPERATIVE DIAGNOSES: Symptomatic cholelithiasis and cholecystitis. POSTOPERATIVE DIAGNOSES: Symptomatic cholelithiasis and cholecystitis. PROCEDURE: Laparoscopic cholecystectomy. ANESTHESIA: General with intubation. COMPLICATIONS: None. ESTIMATED BLOOD LOSS: Less than 30 mL. SPECIMENS: Gallbladder. DRAINS: None. LAP AND SPONGE COUNT: Correct x3. BRIEF HISTORY: This 76-year-old female presented with evidence for symptomatic cholelithiasis and cholecystitis. It was felt that laparoscopic cholecystectomy, possible laparotomy, was indicated. This procedure, the risks, benefits, and alternatives, including but not limited to, the risk for bleeding, infection, common bile duct injury, bile leak, retained common bile duct stone, enterotomy, or injury to any abdominal structure, the definite possible need for laparotomy, possible persistence of her symptoms unrelieved by surgery, possibility of postoperative diarrhea or incisional hernia, and unforeseen complications including deep venous thrombosis, pulmonary embolus, myocardial infarction, stroke, pneumonia, and , were fully and completely explained to the patient and family at length prior to surgery. The fact that this was a major operation with risk for major morbidity and mortality and no guarantee for relief of her symptoms were explained to them. The expected length of recovery with open laparoscopic procedures was explained. The patient has multiple comorbid risk factors and in fact that this would increase her risk for complications and was explained to the patient. Family had questions, which were answered. They clearly understood the risks and agreed to surgery as planned. FINDINGS: The patient's gallbladder estrada were thickened and inflamed and there were adhesions between the gallbladder and omentum consistent with cholecystitis. The liver and remainder of the upper abdomen were otherwise unremarkable as far as we could determine through the laparoscope. The biliary anatomy was clearly defined. PROCEDURE IN DETAIL: After being appropriately identified and after discussing the risks of surgery with the patient and her family in the preoperative area, the patient was taken to the operating room and placed in the supine position on the operating room table. General anesthesia was administered. She was intubated without difficulty. The abdomen was prepped Record Of Operation [address] [place]. [address] NAME: POLY DEJESUS : 42 STATUS : ADM IN PAT#: [id number] AGE: 76 ADM/REG DATE : 08/31/16 MR#: [id number] REPORT SERV DATE: 09/01/16 DICTATED BY: HAIM LEO III DATE: 09/01/16 REPORT STATUS : Draft TRANSCRIBED BY: MODL DATE: 09/01/16 and draped sterilely in the usual fashion. After an appropriate "time-out" per [facility] standards, a small transverse incision was made below the umbilicus. The skin and fascia on either side was elevated with towel clips. A Veress needle was placed through the incision into the peritoneal cavity. Correct position of the needle in the peritoneal cavity was confirmed by the hanging drop test. The abdominal cavity was then insufflated to about 13 mmHg with carbon dioxide. Correct position of air in the peritoneal cavity was confirmed by palpation. The Veress needle was removed and replaced with 10 mm trocar. The laparoscope was placed through this. The patient was placed in the reverse Trendelenburg position and to her left. A second 10 mm trocar was placed just below the xiphoid process, to the right of the falciform ligament, under direct vision with the laparoscope. Two 5 mm trocars were placed along the right subcostal margin, one in the midaxillary line, the other in the midclavicular line. These were also placed under direct vision with the laparoscope. The upper abdomen was inspected. The gallbladder appeared to be chronically diseased. The gallbladder estrada were thickened and inflamed consistent chronic cholecystitis. The liver and remainder of the upper abdomen were otherwise unremarkable as far as we could determine through the laparoscope. The appropriate instruments were placed through the trocars. The gallbladder was grasped and the infundibulum of the gallbladder was retracted laterally and inferiorly so as to expose the triangle of Calot. Using careful sharp and blunt dissection, the cystic duct was carefully and meticulously defined proximally and distally. The cystic duct was fairly long. The junction of the cystic duct with the common bile duct was appreciated, but not skeletonized. The cystic artery was similarly defined proximally and distally. The fibrous and fatty tissue between these structures was divided so as to clearly identify the critical angle. Once these structures were clearly defined, the cystic duct was clipped using two clips on the common bile duct side and one on the gallbladder side, all placed as close to the gallbladder as possible, taking care not encroach upon or injure the common bile duct in any way. The cystic duct was then divided between these clips as close to the gallbladder as possible. We elected not to perform a cholangiogram because there was no preoperative or intraoperative evidence for biliary dilatation and because the patient's preoperative liver enzymes were normal and because her biliary anatomy was clearly defined. Again, the structure was not divided or clipped until the critical angle and triangle of Calot had been clearly identified. The cystic artery was then similarly clipped and divided as close to the gallbladder as possible. Using the spatula and the cautery, the gallbladder was carefully dissected from the liver bed. This went very well. Before the gallbladder was completely removed, the gallbladder bed and portal areas were irrigated numerous times with saline. The saline was aspirated dry. This process was repeated several times until hemostasis was meticulously and thoroughly assured in all areas. It was also assured that the clips in the portal areas were in good position and there was no extravasation of bile from any accessory bile duct. Once this was assured, the gallbladder was completely dissected away from the liver and placed in the Endopouch. The liver bed was elevated, irrigated, and inspected for meticulous and thorough hemostasis and for absence of any biliary extravasation and to be certain that the clips were in good position. Once this was assured, the gallbladder and Endopouch were brought out through the infraumbilical incision and placed in the laparoscope through the subxiphoid port. The fascia of the infraumbilical incision was closed with 0 Vicryl suture. The lateral two trocars were removed. These two lower trocar sites were inspected on the underside for hemostasis with the laparoscope. Once this was assured, the subxiphoid trocar was removed under direct vision with the laparoscope to assure hemostasis in this incision. The air was Record Of [address] [place]. [address] NAME: POLY DEJESUS : 42 STATUS : ADM IN PAT#: [id number] AGE: 76 ADM/REG DATE : 08/31/16 MR#: [id number] REPORT SERV DATE: 09/01/16 DICTATED BY: HAIM LEO III DATE: 09/01/16 REPORT STATUS : Draft TRANSCRIBED BY: MODL DATE: 09/01/16 removed from the peritoneal cavity through this incision. The skin incisions were inspected for hemostasis, they were closed with running subcuticular 4-0 Monocryl stitches. They were injected with one-half percent Marcaine. Dressings were applied. Anesthesia was reversed and the patient was taken to the recovery room in stable condition. The patient tolerated the procedure well. Her family was informed of the results of surgery. The patient will be discharged later when she is stable, comfortable and tolerating liquids and able to void and ambulate. Her family was advised that she should remain on a liquid diet today and advance this as tolerated to a regular diet tomorrow. She should keep wounds clean and dry for 48 hours and that she should not drive for 3 to 4 days after surgery or while using narcotics or Phenergan. They were advised that she should resume her usual medications. She was given a prescription for a narcotic and Phenergan, which she was advised to not take while driving. She was asked to return to the office in two weeks for followup or sooner for nausea, vomiting, fever, chills, wound drainage, abdominal pain, weakness, or other problems prior to that time. JULIETH/LAURIE Haim Leo III, M.D. / [id number] CC: Haim Leo III, M.D.
--- NOTE | ~2016-08-31 | PREOPHP ---
PreOp History and Physical [place] [address] [place]. [address] NAME: POLY DEJESUS : 42 STATUS : ADM IN PAT#: [id number] AGE: 76 ADM/REG DATE : 08/31/16 MR#: [id number] REPORT SERV DATE: 08/31/16 DICTATED BY: HAIM LEO III DATE: 08/31/16 REPORT STATUS : Draft TRANSCRIBED BY: LAURIE DATE: 08/31/16 HISTORY OF PRESENT ILLNESS: This 76-year-old female comes to the operating for laparoscopic cholecystectomy, possible laparotomy, for symptomatic cholelithiasis and cholecystitis. The patient was recently hospitalized with dizziness, nausea, and vomiting. This was felt to be related to acute kidney injury. During that admission, she was found to have choledocholithiasis and cholelithiasis. She underwent ERCP. Multiple common bile duct stones were removed and her common bile duct was cleared of stones and sphincterotomy was performed. The patient has had subsequent continued nausea and vomiting. These symptoms are chronic in nature. The patient has gallstones and felt to have symptomatic cholelithiasis and cholecystitis. She comes to the operating room now for laparoscopic cholecystectomy, possible laparotomy. PAST MEDICAL HISTORY: 1. Coronary artery disease. 2. History of coronary artery stent placement. 3. History of cardiac arrhythmia. 4. History of pacemaker placement. 5. History of AICD placement. 6. History of aortic stenosis. 7. History of pyelonephritis in the past. 8. Steroid-dependent rheumatoid arthritis. 9. Gastroesophageal reflux disease. 10.Systolic congestive heart failure. 11.History of esophageal stricture. MEDICATIONS: Amitriptyline, aspirin, Lipitor, Coreg, calcium, coenzyme, iron, Plaquenil, levothyroxine, lisinopril, MS Contin, prednisone, Lasix, atenolol, hydrocodone. Past medical history also includes hypertension, hypothyroidism, systemic lupus erythematosus, chronic immunosuppression, ischemic cardiomyopathy, and history of transient ischemic attack. ALLERGIES: NEOSPORIN. PAST SURGICAL HISTORY: Includes knee surgery and AICD placement. FAMILY HISTORY: Positive for pancreatic cancer. SOCIAL HISTORY: No tobacco use. The patient has no history of alcohol use. REVIEW OF SYSTEMS: The patient complains of weight loss and swelling in her hands and feet. Joint pain. Tremor. OBJECTIVE/PHYSICAL EXAMINATION: GENERAL: This is a chronically ill-appearing female, in no acute distress. She is alert and oriented x3. VITAL SIGNS: Blood pressure 107/67, pulse 56, temperature 97.6. PreOp History and Physical [address] [place]. [address] NAME: POLY DEJESUS : 42 STATUS : ADM IN PAT#: [id number] AGE: 76 ADM/REG DATE : 08/31/16 MR#: [id number] REPORT SERV DATE: 08/31/16 DICTATED BY: HAIM LEO III DATE: 08/31/16 REPORT STATUS : Draft TRANSCRIBED BY: LAURIE DATE: 08/31/16 HEENT: Unremarkable. NEURO: Cranial nerves 2 through 12 are normal. LUNGS: Clear. CARDIAC: Normal. ABDOMEN: Soft and nontender. EXTREMITIES: Unremarkable. LABORATORY DATA: Previous MRCP shows cholelithiasis. Choledocholithiasis was also found, was corrected by ERCP with sphincterotomy. ASSESSMENT: 1. A 76-year-old female with symptomatic cholelithiasis and chronic cholecystitis. 2. Status post recent choledocholithiasis, status post ERCP with sphincterotomy and removal of common bile duct stones. 3. Hypertension. 4. Ischemic cardiomyopathy. 5. Coronary artery disease. 6. History of transient ischemic attack in the past. 7. Hypothyroidism. 8. Systemic lupus erythematosus, steroid dependent. 9. History of transient ischemic attack in the past. 10.History of pyelonephritis in the past. PLAN: The patient will be admitted emergently from my office with nausea, vomiting, for IV hydration. I have recommended laparoscopic cholecystectomy, possible laparotomy. We will schedule to be done for her on this admission. This procedure, the risks, benefits, alternatives, including not limited to the risk for bleeding, infection, common bile duct injury, bile leak, retained common bile stone, enterotomy, or injury to any abdominal structure, the definite possible need for laparotomy, possible persistence of her symptoms unrelieved by surgery, positive postoperative diarrhea or incisional hernia, and unforeseen complications including deep venous thrombosis, pulmonary embolus, myocardial infarction, stroke, pneumonia, and , have been fully and completely explained to the patient prior to surgery. The fact that this is a major operation with risk for major morbidity, mortality, no guarantee for relief of her symptoms have been explained. The expected length of recovery with open laparoscopic procedures has been explained. The patient's questions were answered. She understands the risks and agrees to surgery as planned. The fact that she has increased risk for complications due to her multiple comorbid risk factors has been explained. Again she understands and agrees to surgery as planned. JULIETH/LAURIE Haim Leo III, M.D. / [id number] PreOp History and Physical [address] [address] NAME: POLY DEJESUS : 42 STATUS : ADM IN PAT#: [id number] AGE: 76 ADM/REG DATE : 08/31/16 MR#: [id number] REPORT SERV DATE: 08/31/16 DICTATED BY: HAIM LEO III DATE: 08/31/16 REPORT STATUS : Draft TRANSCRIBED BY: LAURIE DATE: 08/31/16 CC: Gisella Lemus III, M.D.
[~2016-08-31 12:49] MED LIST changes: +L40 PO
[2016-08-31 13:40] LABS: BASOPHILS 0.2 %; BASOPHILS ABSOLUTE 0.03 10/3/uL (0.0-0.16); EOSINOPHILS 0.3 %; EOSINOPHILS ABSOLUTE 0.04 10/3/uL (0.0-0.53); HEMOGLOBIN 12.1 g/dL (12.0-16.0); IMMATURE GRANULOCYTES 0.9 %; IMMATURE GRANULOCYTES ABSOLUTE 0.11 10/3/uL (0.0-0.11); LYMPHOCYTES 24.4 %; LYMPHOCYTES ABSOLUTE 2.99 10/3/uL (0.67-4.30); MEAN CORPUS HGB CONC 34.9 g/dL (32.0-36.0); MEAN CORPUSCULAR HEMOGLOB 30.8 pg (26.0-34.0); MEAN CORPUSCULAR VOLUME 88.3 fL (80-100); MEAN PLATELET VOLUME 8.9 fL (9.2-13.0); MONOCYTES 8.7 %; MONOCYTES ABSOLUTE 1.07 10/3/uL (0.21-1.20); NEUTROPHILS 65.5 %; NEUTROPHILS ABSOLUTE 7.99 10/3/uL (2.02-8.40); RBC DISTRIBUTION WIDTH 13.6 % (12.0-16.0); RED CELL COUNT 3.93 10/6/uL (4.0-5.6); WHITE BLOOD CELLS 12.2 10/3/uL (4.5-10.5)
[2016-08-31 13:42] LABS: HEMATOCRIT 34.7 % (36.0-48.0); MANUAL DIFF NO %; PLATELET COUNT 406 10/3/uL (150-400)
[2016-08-31 13:52] LABS: CALCIUM, SERUM 9.3 MG/DL (8.5-10.4); CHLORIDE, SERUM 94 MMOL/L (96-112); CO2 (CARBON DIOXIDE) 32 MMOL/L (24-34); CREATININE 1.43 MG/DL (0.55-1.02); GFR AFRICAN AMERICAN 41 ML/MIN (>=60); GFR NON AFRICAN AMERICAN 36 ML/MIN (>=60); GLUCOSE, SERUM 75 MG/DL (60-99); POTASSIUM, SERUM 4.1 MMOL/L (3.5-5.3); SGOT(AST) 42 U/L (5-40); SGPT(ALT) 38 U/L (5-65); SODIUM, SERUM 133 MMOL/L (135-148); TOTAL BILIRUBIN 0.8 MG/DL (0-1.2)
[2016-08-31 13:53] LABS: A/G RATIO 1.1 (0.7-1.9); ALBUMIN 3.3 G/DL (3.5-5.0); ALKALINE PHOSPHATASE 197 U/L (45-117); BUN (BLOOD UREA NITROGEN) 24 MG/DL (6-23); GLOBULIN 3.1 G/DL (2.5-4.1); TOTAL PROTEIN 6.4 G/DL (6.0-8.5)
[2016-08-31] MEDS ORDERED: TOPXL25 PO (14:44)
[2016-08-31] MEDS ORDERED: ZOFRAN4 PO (14:50)
[2016-08-31] MEDS ORDERED: TEARS PLUS OPH (14:50)
[2016-08-31] MEDS ORDERED: FLONASE NAS (14:51)
[2016-09-01 14:31] LABS: HEMOGLOBIN 10.9 g/dL (12.0-16.0)
[2016-09-02 06:39] LABS: BASOPHILS 0.1 %; BASOPHILS ABSOLUTE 0.01 10/3/uL (0.0-0.16); EOSINOPHILS 0 %; HEMATOCRIT 29.6 % (36.0-48.0); HEMOGLOBIN 10.4 g/dL (12.0-16.0); IMMATURE GRANULOCYTES 0.4 %; IMMATURE GRANULOCYTES ABSOLUTE 0.05 10/3/uL (0.0-0.11); LYMPHOCYTES 12.7 %; MEAN CORPUS HGB CONC 35.1 g/dL (32.0-36.0); MEAN CORPUSCULAR VOLUME 88.1 fL (80-100); MEAN PLATELET VOLUME 8.8 fL (9.2-13.0); MONOCYTES 6.4 %; MONOCYTES ABSOLUTE 0.91 10/3/uL (0.21-1.20); NEUTROPHILS 80.4 %; NEUTROPHILS ABSOLUTE 11.42 10/3/uL (2.02-8.40); PLATELET COUNT 286 10/3/uL (150-400); RBC DISTRIBUTION WIDTH 13.4 % (12.0-16.0); RED CELL COUNT 3.36 10/6/uL (4.0-5.6); WHITE BLOOD CELLS 14.2 10/3/uL (4.5-10.5)
[2016-09-02 06:41] LABS: MANUAL DIFF NO %
[2016-09-02 06:55] LABS: CALCIUM, SERUM 8.4 MG/DL (8.5-10.4); CHLORIDE, SERUM 98 MMOL/L (96-112); CO2 (CARBON DIOXIDE) 29 MMOL/L (24-34); POTASSIUM, SERUM 4.5 MMOL/L (3.5-5.3); SGOT(AST) 43 U/L (5-40); SGPT(ALT) 24 U/L (5-65); SODIUM, SERUM 134 MMOL/L (135-148); TOTAL BILIRUBIN 0.5 MG/DL (0-1.2)
[2016-09-02 06:56] LABS: ALBUMIN 2.5 G/DL (3.5-5.0); ALKALINE PHOSPHATASE 140 U/L (45-117); BUN (BLOOD UREA NITROGEN) 11 MG/DL (6-23); CREATININE 0.89 MG/DL (0.55-1.02); GFR AFRICAN AMERICAN 73 ML/MIN (>=60); GFR NON AFRICAN AMERICAN 63 ML/MIN (>=60); GLOBULIN 2.6 G/DL (2.5-4.1); GLUCOSE, SERUM 123 MG/DL (60-99); TOTAL PROTEIN 5.1 G/DL (6.0-8.5)
[2016-10-08] MEDS ORDERED: NORCO1 TAB PO ×3 (02:15→12:09)
[2016-10-08] MEDS ORDERED: ASAB PO ×2 (02:16→09:06)
[2016-10-08] MEDS ORDERED: LIPITOR10 PO (02:17)
[2016-10-08] MEDS ORDERED: PLAQ200B PO ×2 (02:18→12:09)
[2016-10-08] MEDS ORDERED: *UNABLE3 (02:23)
[2016-10-08] MEDS ORDERED: CALTRA600D PO (12:08)
[2016-10-08] MEDS ORDERED: COREG3 PO (12:08)
[2016-10-08] MEDS ORDERED: DSS PO (12:08)
[2016-10-08] MEDS ORDERED: CO-Q-10 PO (12:08)
[2016-10-08] MEDS ORDERED: HALF81 PO (12:08)
[2016-10-08] MEDS ORDERED: PROAM25 PO (12:09)
[2016-10-08] MEDS ORDERED: P5 PO (12:09)
[2016-10-08] MEDS ORDERED: SYN1 PO (12:09)
[2016-10-08] MEDS ORDERED: MSCONT15 PO (12:09)
[2016-10-08] MEDS ORDERED: ZANAFLEX 4 MG TA4 MG PO (12:10)
[2016-10-08] MEDS ORDERED: PREV15 PO (12:10)
[2016-10-08] MEDS ORDERED: B1100 PO (12:10)
[2016-10-08] MEDS ORDERED: ZOFRAN4 PO (12:11)
[2016-10-08] MEDS ORDERED: LIOR10 PO (12:12)
[2016-11-02] MEDS ORDERED: ACET500CAP PO (15:28)
[2016-11-02] MEDS ORDERED: MOVANTIK25 MG PO (15:28)
[2016-11-02] MEDS ORDERED: POTASSIUM CHLORIDE PO (15:30)
[2016-11-02] MEDS ORDERED: MIRALAX POWDER1 PKT PO (15:31)
== END 2016-09-02 16:21 | DRG 418 ==
LOC: CDU2 12:49 → SDC/OF 09-01 08:10 → 5SO 09-01 11:44
PROVIDERS: Surgery
PROC: 0FT44ZZ Resection of Gallbladder, Percutaneous Endoscopic Approach (ICD-10-PCS; principal; 2016-08-31)
DX: K80.10 Calculus of gallbladder with chronic cholecystitis without obstruction (principal); I50.22 Chronic systolic (congestive) heart failure; M32.9 Systemic lupus erythematosus, unspecified; E86.0 Dehydration; I11.0 Hypertensive heart disease with heart failure; I25.5 Ischemic cardiomyopathy; I25.10 Atherosclerotic heart disease of native coronary artery without angina pectoris; I35.0 Nonrheumatic aortic (valve) stenosis; K21.9 Gastro-esophageal reflux disease without esophagitis; M06.9 Rheumatoid arthritis, unspecified; Z95.5 Presence of coronary angioplasty implant and graft; Z79.52 Long term (current) use of systemic steroids; Z95.810 Presence of automatic (implantable) cardiac defibrillator; Z79.82 Long term (current) use of aspirin; Z79.899 Other long term (current) drug therapy
CPT/HCPCS: 80053; 85014; 85018; 85025; 88304; 93005; 93288; A9270-GY; J0690; J1170; J2250; J2405; J2710; J3010